=== PATIENT | female | born 1970 | race Caucasian/White ===

== ENCOUNTER → 2016-11-24 | Outpatient (CLI) | payer MEDICARE, BC ==
[2016-11-24 10:47] LABS: Basophils % (A) 1 %; CHCM 33.5; Eosinophils # (A) 0.1 k/uL (0-0.7); Eosinophils % (A) 1 %; HCT 50.2 % (34.0-46.0); HDW 2.73; HGB 16.1 gm/dL (11.4-16.0); Luc # (Auto) 0.19; Luc % (Auto) 2; Lymphocytes # (A) 1.5 k/uL (1.0-4.8); Lymphocytes % (A) 19 %; MCH 29.9 pg (25.0-35.0); MCHC 32.2 g/dL (31.0-37.0); MCV 92.9 fL (80.0-100.0); Mean Platelet Volume 7.3; Monocytes # (A) 0.4 k/uL (0-1.0); Monocytes % (A) 6 %; Neutrophils # (A) 5.5 k/uL (1.3-7.7); Neutrophils % (A) 71 %; RDW 13.2 % (11.5-15.5); WBC 7.7 k/uL (3.8-10.6); WBC (Perox) 7.77
[2016-11-24 10:53] LABS: ALT 34 U/L (9-52); AST 20 U/L (14-36); Alkaline Phosphatase 54 U/L (38-126); Anion Gap 12 mmol/L; Blood Urea Nitrogen 16 mg/dL (7-17); Calcium 9.6 mg/dL (8.4-10.2); Carbon Dioxide 25 mmol/L (22-30); Chloride 106 mmol/L (98-107); Cholesterol 173 mg/dL (<200); Glucose 85 mg/dL (74-99); HDL Cholesterol 46 mg/dL (40-60); Non-African American GFR(MDRD) >60 (>60 ml/min/1.73 sqM); Potassium 4.2 mmol/L (3.5-5.1); Sodium 143 mmol/L (137-145); Total Bilirubin 0.8 mg/dL (0.2-1.3); Total Protein 7.2 g/dL (6.3-8.2); Triglycerides 186 mg/dL (<150)
[2016-11-24 11:14] LABS: Hemoglobin A1C 5.1 % (4.2-6.1)
--- NOTE | 2016-11-25 13:53 | MM ---
Reason for exam: screening (asymptomatic). Last mammogram was performed 1 year and 6 months ago. History: Patient is nulliparous. Taking progesterone for 4 years. Physical Findings: A clinical breast exam by your physician is recommended on an annual basis and results should be correlated with mammographic findings. MG 3D Screening Mammo W/Cad Bilateral CC and MLO view(s) were taken. Prior study comparison: May 14, 2015, bilateral MG screening mammo w CAD. The breast tissue is heterogeneously dense. This may lower the sensitivity of mammography. No significant changes when compared with prior studies. ASSESSMENT: Benign, BI-RAD 2 RECOMMENDATION: Routine screening mammogram of both breasts in 1 year.
== END | disposition home or self-care (01) ==
LOC: RADMAMWWP 09:55
PROVIDERS: ATTEND Family Medicine
DX: Z12.31 Encounter for screening mammogram for malignant neoplasm of breast (principal)
CPT/HCPCS: 80061; 80053; 83036; 84443; 85025; 82306; 77063; 36415; G0202

== ENCOUNTER → 2018-03-11 | Outpatient (CLI) | payer MEDICARE, BC ==
--- NOTE | 2018-03-12 09:17 | MM ---
Reason for exam: screening (asymptomatic). Last mammogram was performed 1 year and 3 months ago. History: Patient is nulliparous. Taking progesterone for 4 years. Physical Findings: A clinical breast exam by your physician is recommended on an annual basis and results should be correlated with mammographic findings. MG 3D Screening Mammo W/Cad Bilateral CC, MLO, and XCCL view(s) were taken. Prior study comparison: November 24, 2016, bilateral MG 3d screening mammo w/cad. May 14, 2015, bilateral MG screening mammo w CAD. The breast tissue is heterogeneously dense. This may lower the sensitivity of mammography. There is a stable right upper inner quadrant mass back to 2013. No suspicious abnormality. No significant changes when compared with prior studies. ASSESSMENT: Benign, BI-RAD 2 RECOMMENDATION: Routine screening mammogram of both breasts in 1 year.
== END | disposition home or self-care (01) ==
LOC: RADMAMWWP 13:13
PROVIDERS: ATTEND Family Medicine
DX: Z12.31 Encounter for screening mammogram for malignant neoplasm of breast (principal)
CPT/HCPCS: 77063; 77067

== ENCOUNTER → 2019-04-06 | Outpatient (CLI) | payer MEDICARE, BC ==
--- NOTE | 2019-04-12 09:44 | MM ---
Reason for exam: screening (asymptomatic). Last mammogram was performed 1 year and 1 month ago. History: Patient is nulliparous. Taking progesterone for 4 years. Physical Findings: A clinical breast exam by your physician is recommended on an annual basis and results should be correlated with mammographic findings. MG 3D Screening Mammo W/Cad Bilateral CC and MLO view(s) were taken. Prior study comparison: March 11, 2018, bilateral MG 3d screening mammo w/cad. November 24, 2016, bilateral MG 3d screening mammo w/cad. The breast tissue is heterogeneously dense. This may lower the sensitivity of mammography. There is chronic nodularity in the right breast medially. No significant changes when compared with prior studies. ASSESSMENT: Benign, BI-RAD 2 RECOMMENDATION: Routine screening mammogram of both breasts in 1 year.
== END | disposition home or self-care (01) ==
LOC: RADMAMWWP 10:50
PROVIDERS: ATTEND Family Medicine
DX: Z12.31 Encounter for screening mammogram for malignant neoplasm of breast (principal)
CPT/HCPCS: 77063; 77067

== ENCOUNTER → 2019-10-17 | Outpatient (CLI) | payer MEDICARE, BC ==
--- NOTE | 2019-10-17 14:40 | US ---
EXAMINATION TYPE: US pelvic complete DATE OF EXAM: 10/17/2019 COMPARISON: NONE CLINICAL HISTORY: N92.1 Menorrhagia. TECHNIQUE: Transabdominal (TA). Transabdominal sonographic images of the pelvis were acquired. Date of LMP: 10/04/19 EXAM MEASUREMENTS: Uterus: 10.5 x 4.2 x 4.5 cm Endometrial Stripe: 1.4 cm Right Ovary: 2.7 x 1.6 x 2.2 cm Left Ovary: Surgically absent 1. Uterus: Anteverted wnl 2. Endometrium: wnl 3. Right Ovary: wnl 4. Left Ovary: Surgically absent 5. Bilateral Adnexa: small amount of ff in right adnexa 6. Posterior cul-de-sac: wnl IMPRESSION: 1. Endometrial thickness would be within normal limits for a premenopausal female but thickened for a postmenopausal female. Correlate with perimenopausal status. 2. Surgical absence of the left ovary. 3. Small amount of right adnexal free fluid, likely physiologic in nature.
[2019-10-17 15:29] LABS: T4, Free (Free Thyroxine) 1.01 ng/dL (0.78-2.19)
== END | disposition home or self-care (01) ==
LOC: RADUSWWP 13:27
PROVIDERS: ATTEND Obstetrics & Gynecology
DX: N95.9 Unspecified menopausal and perimenopausal disorder (principal); Z90.721 Acquired absence of ovaries, unilateral; Z13.29 Encounter for screening for other suspected endocrine disorder; N92.1 Excessive and frequent menstruation with irregular cycle
CPT/HCPCS: 76856; 84439; 84443

== ENCOUNTER 2020-05-28 06:21 | Day surgery (SDC) | payer MEDICARE, BC ==
[2020-05-24 11:34] VITALS: BMI 30.9
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
[~2020-05-28 06:21] MED LIST: Pre Op ABX Message 1 EACH MISC MISCELLANE ONE
[2020-05-28] MEDS ORDERED: LACTATED RINGERS 1,000 ML IV SCH (06:34)
[2020-05-28] MEDS ORDERED: ONDANSETRON 4 MG/2 ML VIAL IVP ONE (06:34)
[2020-05-28] MEDS ORDERED: HYDROmorphone 0.5 MG/0.5 ML SYRINGE IVP PRN (06:34)
[2020-05-28] MEDS ORDERED: DEXAMETHASONE SOD PHOSPHATE 10 MG/ML 1 ML VIAL IV ONE (06:34)
[2020-05-28] MEDS ORDERED: LIDOCAINE 1% (10MG/ML) FOR IV START INTRADERMA ONE (07:10)
[2020-05-28] MEDS ORDERED: fentaNYL (PF) 50 MCG/ML 2 ML AMP ONE (07:46)
[2020-05-28] MEDS ORDERED: MIDAZOLAM 2 MG/2 ML VIAL ONE (07:46)
[2020-05-28] MEDS ORDERED: LIDOCAINE 1% INJ 10MG/ML (20 ML MDV) ONE (07:46)
[2020-05-28] MEDS ORDERED: KETOROLAC 15 MG/ML 1 ML VIAL ONE (07:46)
[2020-05-28] MEDS ORDERED: PROPOFOL 10 MG/ML 20 ML VIAL IV ONE (07:46)
--- NOTE | 2020-05-28 08:34 | P.OP ---
Date of Procedure: 05/28/20 Preoperative Diagnosis: Menorrhagia with irregular cycle Postoperative Diagnosis: Same Procedure(s) Performed: Dilation and curettage with hysteroscopy and NovaSure endometrial ablation Anesthesia: ASHELY Surgeon: Luly Malik Estimated Blood Loss (ml): 25 Pathology: none sent Condition: stable Disposition: floor Indications for Procedure: This is a 49 y.o. female, 0, para 0, who presents for dilatation and curettage with hysteroscopy and Novasure endometrial ablation due to menorrhagia with irregular cycle. She complains of 2 cycles a month and intermenstrual spotting. Some menses are lasting up to 15 days. This has been going on for at least a year. She was previously taking cyclical Provera and switched to continuous with no change. She also complains of lots of cramping. She is not sexually active and understands this procedure is not a form of control. US showed uterus measuring 10.5 x 4.2 x 4.5 cm, endometrium 1.4 cm, R. ovary normal. L. ovary surgically removed. Operative Findings: Uterus is slightly enlarged, mid to anteverted position, tilted towards the right side slightly. Uterus is sounded to 10 cm. Cervix is sounded to 3 cm. Upon hysteroscopy several polyps were visualized. Both tubal ostia were v isualized. A moderate amount of endometrial curettings are obtained. Description of Procedure: The patient is taken to the operating room. She is placed in the dorsal litho arie position after general anesthesia was given. She is prepped and draped in the normal sterile fashion. Bladder is drained with a catheter and then removed. Pelvic exam is performed under anesthesia. Uterus is found to be anteverted with no adnexal masses. She is placed in slight Trendelenburg position. A right angle retractor is used to visualize the cervix. The anterior lip of the cervix is grasped with a single-tooth tenaculum. Cervix is sounded to 3 cm. Uterus is sounded to 10 cm. Cervix is gently dilated with Dunn dilators until a hysteroscope could be passed. Hysteroscopy is performed using normal saline. The above noted findings are noted. Next a polyp forceps is introduced. A moderate amount tissue was obtained. Next medium-sized size sharp curette was placed. A moderate amount of endometrial curettings were obtained. Next NovaSure array was inserted into the endometrial cavity. Length was set at 6.5 cm and width was determined to be 3.3 cm. Next cavity assessment was completed and passed on the first try. Next, attempt was made to fire the NovaSure array. I continually got a vacuum error despite repositioning. Next a new array was tried. Cavity assessment was again completed on the first try. Next NovaSure array was fired at 118 W for 68 seconds. Next the array was removed, inspected and then discarded. Next the hysteroscope was reinserted. Uniform charring was noted other than right at the fundus. Pictures were taken. Hysteroscope was removed. Single-tooth tenaculum was removed from the anterior lip of the cervix. Minimal bleeding was noted. All other instruments removed from the vagina. Sponge counts were correct. Patient is taken to recovery room in stable condition.
[2020-05-28 08:41] VITALS: TEMP 99
[2020-05-28 08:46] VITALS: RESP 16
[2020-05-28 09:53] VITALS: BP 129/83; PULSE 84
== END 2020-05-28 10:14 | disposition home or self-care (01) ==
LOC: OR 06:21
PROVIDERS: ATTEND Obstetrics & Gynecology
DX: N92.1 Excessive and frequent menstruation with irregular cycle (principal); N84.0 Polyp of corpus uteri; G91.9 Hydrocephalus, unspecified; K21.9 Gastro-esophageal reflux disease without esophagitis; Z88.1 Allergy status to other antibiotic agents; Z90.721 Acquired absence of ovaries, unilateral; Z79.899 Other long term (current) drug therapy; Z86.69 Personal history of other diseases of the nervous system and sense organs; Z80.8 Family history of malignant neoplasm of other organs or systems; Z98.890 Other specified postprocedural states
CPT/HCPCS: 81025; 88305; 58563; J2250; J1100; J2405; J2001; J3010; J1885; J2704

== ENCOUNTER → 2020-10-15 | Outpatient (CLI) | payer MEDICARE, BC ==
[2020-10-15 11:35] LABS: African American GFR (CKD) >90 (>60 ml/min/1.73 sqM); Anion Gap 10 mmol/L; Blood Urea Nitrogen 23 mg/dL (7-17); Carbon Dioxide 24 mmol/L (22-30); Chloride 106 mmol/L (98-107); Glucose 97 mg/dL (74-99); Non-African American GFR(CKD) >90 (>60 ml/min/1.73 sqM); Potassium 4.3 mmol/L (3.5-5.1); Sodium 140 mmol/L (137-145)
[2020-10-15 12:04] LABS: Basophils # (A) 0.1 k/uL (0-0.2); Basophils % (A) 1 %; Eosinophils # (A) 0.1 k/uL (0-0.7); Eosinophils % (A) 1 %; HCT 47.7 % (34.0-46.0); HGB 16.3 gm/dL (11.4-16.0); Lymphocytes # (A) 1.9 k/uL (1.0-4.8); Lymphocytes % (A) 20 %; MCH 31.1 pg (25.0-35.0); MCHC 34.2 g/dL (31.0-37.0); Mean Platelet Volume 7.6; Monocytes # (A) 0.7 k/uL (0-1.0); Monocytes % (A) 7 %; Neutrophils # (A) 6.6 k/uL (1.3-7.7); Neutrophils % (A) 69 %; Platelet Count 277 k/uL (150-450); RBC 5.24 m/uL (3.80-5.40); RDW 12.4 % (11.5-15.5); WBC 9.5 k/uL (3.8-10.6)
== END | disposition home or self-care (01) ==
LOC: LABPAT 09:57
PROVIDERS: ATTEND Obstetrics & Gynecology
DX: Z01.818 Encounter for other preprocedural examination (principal)
CPT/HCPCS: 36415; 80048; 85025; 86850; 86900; 86901

== ENCOUNTER 2020-10-22 05:52 | Inpatient (IN) | payer MEDICARE, BC ==
[2020-10-15 14:32] VITALS: BMI 31.3
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
[~2020-10-22 05:52] MED LIST changes: +MIDAZOLAM 2 MG/2 ML VIAL IV PRN; -Pre Op ABX Message 1 EACH MISC MISCELLANE ONE; +SCOPOLAMINE 1.5MG/72HR PATCH TRANSDERM ONE
[2020-10-22] MEDS: LACTATED RINGERS 1,000 ML IV SCH ×4 (06:39→15:02)
[2020-10-22] MEDS ORDERED: LIDOCAINE 1% (10MG/ML) FOR IV START INTRADERMA ONE (06:39)
[2020-10-22] MEDS ORDERED: HYDROmorphone 0.5 MG/0.5 ML SYRINGE IVP PRN (07:00)
[2020-10-22] MEDS: ONDANSETRON 4 MG/2 ML VIAL IVP ONE ×2 (07:01→12:04)
[2020-10-22] MEDS: DEXAMETHASONE SOD PHOSPHATE 4 MG/ML 1 ML VIAL IV ONE ×2 (07:01→12:04)
[2020-10-22] MEDS ORDERED: fentaNYL (PF) 50 MCG/ML 2 ML AMP IV ONE (07:03)
[2020-10-22] MEDS ORDERED: PROPOFOL 10 MG/ML 20 ML VIAL IV ONE (07:23)
[2020-10-22] MEDS ORDERED: NEOSTIGMINE 1 MG/ML 10 ML VIAL ONE (07:23)
[2020-10-22] MEDS ORDERED: LIDOCAINE 1% INJ 10MG/ML (20 ML MDV) ONE (07:23)
[2020-10-22] MEDS ORDERED: ROCURONIUM 10 MG/ML (5 ML VIAL) IV ONE (07:23)
[2020-10-22] MEDS ORDERED: ROPIVACAINE 5 MG/ML 30 ML VIAL ONE (07:23)
[2020-10-22] MEDS ORDERED: ePHEDrine SULFATE/0.9% NACL/PF 50 MG/5 ML SYRINGE IV ONE (07:23)
[2020-10-22] MEDS ORDERED: GLYCOPYRROLATE 0.2 MG/ML 2 ML VIAL ONE (07:23)
[2020-10-22] MEDS ORDERED: SUCCINYLCHOLINE CHLORIDE 100 MG/5 ML SYR IV ONE (07:23)
[2020-10-22] MEDS ORDERED: DEXAMETHASONE SOD PHOSPHATE 4 MG/ML 1 ML VIAL ONE (07:23)
[2020-10-22] MEDS ORDERED: fentaNYL (PF) 50 MCG/ML 2 ML AMP ONE (07:23)
[2020-10-22] MEDS ORDERED: LACTATED RINGERS 1,000 ML IV ONE (09:00)
--- NOTE | 2020-10-22 09:11 | P.OP ---
Date of Procedure: 10/22/20 Preoperative Diagnosis: Endometrial hyperplasia with atypia Postoperative Diagnosis: Severe intra-abdominal adhesions Procedure(s) Performed: Exploratory laparotomy Lysis of omental and abdominal bowel adhesions Repair of bowel and bladder serosa Anesthesia: venkata LUND (Erector spinae block) Surgeon: Luly Malik Schedule Analyst #1: Porsha Bush Schedule Analyst #2: Carlos Manuel Castillo Estimated Blood Loss (ml): 50 Urine output (ml): 60 (Blood-tinged) Pathology: none sent Condition: stable Disposition: floor Indications for Procedure: This is a 50 y.o. female, 0, who presents for total abdominal hysterect matteo with right salpingooophorectomy due to endometrial hyperplasia with atypia diagnosed on dilatation and curettage with hysteroscopy and Novasure endometrial ablation in May,. Prior to her ablation, she was having frequent irregular menses that did not improve with progesterone. Since pathology came back with endometrial hyperplasia with atypia, the decision was made by her guardian (mother) to proceed with the above noted procedure. She is aware that this will cause her to go into menopause. Operative Findings: Severe omental and bowel adhesions are noted. Uterus was unable to be completely visualized. There was some denudation of the serosa of the colon and also the bladder. These were repaired by Dr. Castillo. Right ovary was unable to be visualized. The uterus did appear to be very small with adhesions both posteriorly and anteriorly. The uterus was unable to be completely visualized. Description of Procedure: The patient was taken to the operating room and she is placed in the dorsal supine position area she is prepped and draped in the normal sterile fashion including a vaginal prep and Mendez catheter insertion. A Pfannenstiel skin incision was made with a scalpel. A second knife was used to carry the incision down to the underlying layer of fascia. The fascia was nicked in the midline and then extended laterally bilaterally with Garcia scissors. The superior aspect of the fascial incision was then grasped with Birgit clamps and dissected off the underlying rectus muscle in the midline with Garcia scissors. The inferior aspect of the fascial incision was then also grasped with Birgit clamps, and dissected off the underlying rectus muscle in the midline with Garcia scissors. Multiple attempts were made to find the peritoneal layer. It was apparent that there were bowel adhesions throughout. At this point we were unable to find entry into the peritoneal cavity and we were concerned that we were already in due to omental adhesions, the decision was made to call a general surgeon in. Dr. Carlos Manuel Castillo did come into the surgery and his portion will be dictated separately. Numerous omental and bowel adhesions were taken down to attempt to see the uterus. There was some denudation of the colon that was repaired. During the surgery anesthesia notified me that her urine did have a blood tinge to it. We were able to finally find the uterus and bowel was adhesed to the posterior wall of the uterus. The right adnexa was unable to be visualized. The anterior the uterus was also unable to be visualized. There was what appeared to be a small denudation of the serosa of the anterior bladder. This was also repaired with stitches by Dr. Castillo. At this point the decision was made to abandon the hysterectomy due to severe scar tissue and lack of bowel prep. It was decided that we can potentially cause more harm to her and when risks and benefits were weighed, it was determined to stop the procedure at this point. After no active bleeding was noted, all sponge counts were correct. Fascia layer was then closed with 0 PDS suture with 2 sutures meeting in the midline and the knots buried on either side and the midline. Tissue was then closed with 2-0 Vicryl suture in a running fashion. The skin is then closed with medardo. All sponge and needle counts are correct. The patient is taken to recovery room in stable condition. Her mother who is her guardian will be apprised of the situation.
--- NOTE | 2020-10-22 09:34 | P.ANPRN ---
Procedure Note - Anesthesia - Nerve Block Performed Bilateral Erector Spinae Single Time Out Performed: Yes (702) Date of Procedure: 10/22/20 Procedure Start Time: :03 Procedure Stop Time: 07:08 Location of Patient: PreOp Indication: Acute Post-Operative Pain, Requested by Surgeon Specifically requested for management of pain by DrYash: Luly Malik Sedation Type: Sedate with meaningful contact maintained Preparation: Sterile Prep Position: Supine Catheter: None Needle Types: Pajunk Needle Gauge: 21 Ultrasound used to visualize needle placement: Yes Ultrasound used to observe medication spread: Yes Injectate: 0.5% Ropivacaine (see comment for volume) (15cc + 15cc NACL PF each side) Blood Aspirated: No Pain Paresthesia on Injection Noted: No Resistance on Injection: Normal Image Stored and Saved: Yes Events: Uneventful and Well Tolerated
[2020-10-22] MEDS ORDERED: ONDANSETRON 4 MG/2 ML VIAL IVP ONE (09:48)
[2020-10-22] MEDS ORDERED: KETOROLAC 15 MG/ML 1 ML VIAL IVP ONE (09:54)
[2020-10-22] MEDS ORDERED: HYDROcodone/APAP 7.5-325MG 1 EACH TAB PO PRN (10:45)
[2020-10-22] MEDS ORDERED: ONDANSETRON 4 MG/2 ML VIAL IVP PRN (10:45)
[2020-10-22] MEDS ORDERED: METOCLOPRAMIDE 5 MG/ML 2 ML VIAL IVP PRN (10:45)
[2020-10-22] MEDS ORDERED: SIMETHICONE 80 MG CHEWABLE PO PRN (10:45)
[2020-10-22] MEDS ORDERED: ZOLPIDEM 5 MG TAB PO PRN (10:45)
[2020-10-22] MEDS ORDERED: HYDROmorphone PCA 10 MG/50 ML BAG IV PRN (10:45)
[2020-10-22] MEDS ORDERED: NALOXONE 0.4 MG/ML 1 ML VIAL IV PRN (10:45)
[2020-10-22] MEDS ORDERED: diphenhydrAMINE 50 MG/ML 1 ML VIAL IVP PRN (10:45)
--- NOTE | 2020-10-22 11:02 | P.OP ---
Date of Procedure: 10/22/20 Procedure(s) Performed: PREOPERATIVE DIAGNOSIS: Abdominal adhesions POSTOPERATIVE DIAGNOSIS: Same PROCEDURE: Lysis of adhesions SURGEON: Jonathan EBL: Minimal ANESTHESIA: General COMPLICATIONS: None OPERATIVE PROCEDURE: Patient was taken to the OR for a elective hysterectomy by gynecology. A Pfannenstiel incision was chosen. I was asked to assist once the patient was found to have extensive abdominal adhesions. Upon inspection of the operative field the patient had a Pfannenstiel incision with the rectus in the midline. The patient's sigmoid colon was visualized traversing the middle aspect of the incision site. There was a 3 cm serosal tear running longitudinally and another less than 1 cm serosal tear superior to that. As we carefully dissected adhesions using a combination of blunt dissection and sharp dissection and electrocautery sparingly we're able to mobilize the sigmoid colon well enough that we could see that the patient had some heavier sutures that were adherent to the sigmoid colon in the region of the serosal tear. These appear to be there from the previous surgery. We were able to dissect anterior to the sigmoid colon and follow the sigmoid colon as it approached the rectum. In doing so we were able to palpate the patient's uterus and Dr. Malik was able to dissect a portion of the uterus but the patient still had dense adhesions. As we were inspecting the preperitoneal space anterior to the uterus we were able to see an area of the bladder wall superiorly and anteriorly that was thin. There was no defect present. This weakness of the bladder wall was repaired using a running 2-0 Vicryl suture. Gynecology decided at this point that they would abort the planned hysterectomy. They proceeded with formal closure. DISPOSITION: Stable
[2020-10-22] MEDS: SENNOSIDES-DOCUSATE SODIUM 1 EACH TAB PO SCH ×2 (12:09→23:04)
[2020-10-22] MEDS: BACLOFEN 10 MG TAB PO SCH ×3 (13:12→22:09)
[2020-10-22 13:22] VITALS: RESP 16
[2020-10-22] MEDS: KETOROLAC 15 MG/ML 1 ML VIAL IVP PRN ×2 (16:10→22:10)
[2020-10-23] MEDS: LACTATED RINGERS 1,000 ML IV SCH (00:28)
[2020-10-23] MEDS: KETOROLAC 15 MG/ML 1 ML VIAL IVP PRN ×2 (04:31→10:33)
[2020-10-23 05:53] LABS: Basophils % (A) 0 %; Eosinophils % (A) 0 %; Lymphocytes # (A) 1.5 k/uL (1.0-4.8); Lymphocytes % (A) 11 %; MCHC 33.2 g/dL (31.0-37.0); MCV 90.3 fL (80.0-100.0); Mean Platelet Volume 7.8; Monocytes # (A) 0.9 k/uL (0-1.0); Monocytes % (A) 7 %; Neutrophils # (A) 11.5 k/uL (1.3-7.7); Neutrophils % (A) 81 %; Platelet Count 234 k/uL (150-450); RBC 4.21 m/uL (3.80-5.40); RDW 13.3 % (11.5-15.5); WBC 14.2 k/uL (3.8-10.6)
[2020-10-23 06:09] LABS: HGB 12.6 gm/dL (11.4-16.0)
[2020-10-23] MEDS ORDERED: ACETAMINOPHEN TAB 325 MG TAB PO PRN (07:42)
[2020-10-23] MEDS: BACLOFEN 10 MG TAB PO SCH ×3 (08:43→21:59)
[2020-10-23] MEDS: SENNOSIDES-DOCUSATE SODIUM 1 EACH TAB PO SCH (08:43)
--- NOTE | 2020-10-23 09:14 | P.PN ---
Subjective Progress Note Date: 10/23/20 Principal diagnosis: Status post exploratory laparotomy with lysis of adhesions and repair of bowel and bladder serosa postoperative day #1 Patient is doing better today. She is passing flatus. She is hungry. Her urine is now very clear and copious amounts. Pain is been fairly well- controlled. She is only used her YEAST PUSHER pump once in the last 4 hours. Objective - Vital Signs Vital signs: Vital Signs Temp 99 F 10/23/20 08:00 Pulse 99 10/23/20 08:00 Resp 16 10/23/20 08:00 BP 132/84 10/23/20 08:00 Pulse Ox 97 10/23/20 08:00 Intake & Output 10/22/20 10/23/20 10/23/20 18:59 06:59 18:59 Intake Total 1450 Output Total 160 400 Balance 1290 -400 Weight 68.7 kg Intake: IV 1450 Output: Urine 110 400 Uretheral (Mendez) 200 Estimated Blood Loss 50 Other: Voiding Method Indwelling Catheter Indwelling Catheter - Constitutional General appearance: Present: no acute distress - Gastrointestinal Gastrointestinal Comment(s): Incision is clean dry and intact with medardo in place General gastrointestinal: Present: normal bowel sounds - Labs CBC & Chem 7: 10/23/20 05:04 Labs: Abnormal Lab Results - Last 24 Hours (Table) 10/23/20 Range/Units 05:04 WBC 14.2 H (3.8-10.6) k/uL Neutrophils # 11.5 H (1.3-7.7) k/uL Assessment and Plan Assessment: Status post exploratory laparotomy with lysis of adhesions and repair of bowel and bladder serosa postoperative day #1, unable to complete hysterectomy (1) Endometrial hyperplasia with atypia Current Visit: No Status: Acute Code(s): N85.02 - ENDOMETRIAL INTRAEPITHELIAL NEOPLASIA [EIN] SNOMED Code(s): 142737045 Plan: We'll switch to oral pain medications today. Will discontinue Mendez catheter and advance diet. Will resume Provera daily since we were unable to remove the uterus. She will follow-up with [facility] after discharge. We will encourage ambulation. Will consult physical therapy for a knee scooter like she uses at home so that she can start ambulate more.
[2020-10-23] MEDS ORDERED: medroxyPROGESTERone 10 MG TABLET PO SCH ×2 (09:15→21:00)
[2020-10-23] MEDS: HYDROcodone/APAP 5-325MG 1 EACH TAB PO PRN ×2 (13:04→19:30)
--- NOTE | 2020-10-23 15:26 | P.PN ---
Subjective Progress Note Date: 10/23/20 Principal diagnosis: Abdominal adhesions Patient doing well today. Mild discomfort when moving at the incision site. Passing gas. Mendez catheter was removed. She has voided twice since then. No blood. Labs noted. Objective - Vital Signs Vital signs: Vital Signs Temp 98.5 F 10/23/20 12:00 Pulse 107 H 10/23/20 12:00 Resp 16 10/23/20 12:00 BP 135/88 10/23/20 12:00 Pulse Ox 95 10/23/20 12:00 Intake & Output 10/22/20 10/23/20 10/23/20 18:59 06:59 18:59 Intake Total 1450 Output Total 262 031 5421 Balance 1290 -400 -1600 Weight 68.7 kg Intake: IV 1450 Output: Urine 350 863 7222 Uretheral (Mendez) 200 1100 Estimated Blood Loss 50 Other: Voiding Method Indwelling Catheter Indwelling Catheter - Exam Abdomen: Soft, nondistended, incision clean and dry, mild appropriate tenderness - Labs CBC & Chem 7: 10/23/20 05:04 Labs: Abnormal Lab Results - Last 24 Hours (Table) 10/23/20 Range/Units 05:04 WBC 14.2 H (3.8-10.6) k/uL Neutrophils # 11.5 H (1.3-7.7) k/uL Assessment and Plan (1) Abdominal adhesions Narrative/Plan: Patient seems to be doing well today. Mild tachycardia. Pain is well- controlled. Repeat labs tomorrow. Agree with regular diet. Will follow. Current Visit: Yes Status: Acute Code(s): K66.0 - PERITONEAL ADHESIONS (POSTPROCEDURAL) (POSTINFECTION) SNOMED Code(s): 363753701
[2020-10-23] MEDS: IBUPROFEN 600 MG TAB PO PRN ×2 (15:39→21:59)
[2020-10-24] MEDS: SENNOSIDES-DOCUSATE SODIUM 1 EACH TAB PO SCH ×2 (00:03→07:23)
[2020-10-24 06:19] LABS: Basophils % (A) 0 %; Eosinophils # (A) 0.2 k/uL (0-0.7); Eosinophils % (A) 2 %; HCT 37.3 % (34.0-46.0); HGB 12.2 gm/dL (11.4-16.0); Lymphocytes # (A) 1.8 k/uL (1.0-4.8); Lymphocytes % (A) 20 %; MCH 29.9 pg (25.0-35.0); MCHC 32.8 g/dL (31.0-37.0); Mean Platelet Volume 7.8; Monocytes # (A) 0.5 k/uL (0-1.0); Monocytes % (A) 5 %; Neutrophils # (A) 6.3 k/uL (1.3-7.7); Neutrophils % (A) 71 %; Platelet Count 211 k/uL (150-450); RDW 13.1 % (11.5-15.5); WBC 8.9 k/uL (3.8-10.6)
--- NOTE | 2020-10-24 07:21 | P.DS ---
Providers Date of admission: 10/22/20 05:52 Expected date of discharge: 10/24/20 Attending physician: Luly Malik Consults: 10/22/20 12:25 Consult Physician Routine Consulting Provider: Carlos Manuel Castillo Consult Reason/Comments: Intraoperative consult for adhesions Do you want consulting provider notified?: Already Contacted Primary care physician: Angelo Ramirez - Discharge Diagnosis(es) (1) Endometrial hyperplasia with atypia Current Visit: No Status: Acute Hospital Course: This is a 50-year-old female 0 who presented for total abdominal hysterectomy with right salpingo-oophorectomy due to endometrial hyperplasia with atypia. She underwent an exploratory laparotomy with lysis of adhesions and repair of bowel serosa and bladder serosa on 10/22/2020. Hysterectomy was not completed due to extensive adhesions and scar tissue and inability to visualize. Postoperatively she has done well. She is passing flatus but no bowel movement yet. She is urinating without difficulty. Her urine has cleared since the surgery. Pain is been fairly well-controlled with ibuprofen and occa sional Montgomery. Vital signs are stable. Abdomen is soft with positive bowel sounds 4. Incision is clean dry and intact with khadijah in place. Extremities show negative Homans. Impression is status post exploratory laparotomy with lysis of adhesions and repair of bowel and bladder serosa. Plan is to discharge home today. Khadijah will be removed and Steri-Strips placed prior to discharge. She will be given a prescription for ibuprofen and Montgomery. Her mother who is her guardian was counseled regarding opioid use and has signed the consent form. She is advised to follow up in the office in 1 week for postoperative check. She is advised to call the office if she has any further questions or concerns prior to her appointment time. Procedures: Exploratory laparotomy with lysis of adhesions and repair of bowel serosa and bladder serosa on 10/22/2020 Patient Condition at Discharge: Stable Plan - Discharge Summary Discharge Rx Participant: Yes New Discharge Prescriptions: New Ibuprofen [Motrin] 600 mg PO Q6HR PRN #60 tab PRN Reason: Mild Discomfort HYDROcodone/APAP 5-325MG [Montgomery 5-325] 1 each PO Q6HR PRN #10 tab PRN Reason: Pain Continue Cholecalciferol [Vitamin D3 (25 Mcg = 1000 Iu)] 5,000 unit PO DAILY Multivitamins, Thera [Multivitamin (formulary)] 1 tab PO DAILY Fiber Cap 1 tab PO DAILY medroxyPROGESTERone [Provera] 10 mg PO QAM Ascorbic Acid [Vitamin C] 500 mg PO DAILY Baclofen [Lioresal] 10 mg PO TID Discharge Medication List Cholecalciferol [Vitamin D3 (25 Mcg = 1000 Iu)] 5,000 unit PO DAILY 05/24/20 [History] Fiber Cap 1 tab PO DAILY 05/24/20 [History] Multivitamins, Thera [Multivitamin (formulary)] 1 tab PO DAILY 05/24/20 [History] Ascorbic Acid [Vitamin C] 500 mg PO DAILY 10/15/20 [History] Baclofen [Lioresal] 10 mg PO TID 10/15/20 [History] medroxyPROGESTERone [Provera] 10 mg PO QAM 10/15/20 [History] HYDROcodone/APAP 5-325MG [Montgomery 5-325] 1 each PO Q6HR PRN #10 tab 10/24/20 [Rx] Ibuprofen [Motrin] 600 mg PO Q6HR PRN #60 tab 10/24/20 [Rx] Follow up Appointment(s)/Referral(s): Luly Malik DO [Doctor of Osteopathic Medicine] - 1 Week Activity/Diet/Wound Care/Special Instructions: Activity as tolerated. Diet as tolerated. May shower, but no tub baths. No strenuous lifting. Discharge Disposition: HOME SELF-CARE
[2020-10-24] MEDS: HYDROcodone/APAP 5-325MG 1 EACH TAB PO PRN (07:23)
[2020-10-24 08:23] VITALS: BP 138/89; PULSE 96; TEMP 99.1
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
== END 2020-10-24 10:30 | disposition home or self-care (01) | DRG 750 ==
LOC: 2ORMAIN 05:52 → EDSTATUS 07:30 → 4FBP 09:20
PROVIDERS: ADMIT Obstetrics & Gynecology; ATTEND Obstetrics & Gynecology
PROC: 0DNN0ZZ Release Sigmoid Colon, Open Approach (ICD-10-PCS; principal; 2020-10-22 07:30)
PROC: 0DNU0ZZ Release Omentum, Open Approach (ICD-10-PCS; principal; 2020-10-22 07:30)
DX: N85.02 Endometrial intraepithelial neoplasia [EIN] (principal); N92.0 Excessive and frequent menstruation with regular cycle; K66.0 Peritoneal adhesions (postprocedural) (postinfection); R00.0 Tachycardia, unspecified; Z80.8 Family history of malignant neoplasm of other organs or systems; Z88.1 Allergy status to other antibiotic agents; Z79.899 Other long term (current) drug therapy; Z53.09 Procedure and treatment not carried out because of other contraindication
CPT/HCPCS: 76942; 84703; 85025; 86850; 86900; 86901

== ENCOUNTER → 2021-01-03 | Outpatient (CLI) | payer MEDICARE, BC ==
--- NOTE | 2021-01-04 09:10 | MM ---
Reason for exam: screening (asymptomatic). Last mammogram was performed 1 year and 9 months ago. History: Patient is nulliparous. Taking progesterone for 4 years. Physical Findings: A clinical breast exam by your physician is recommended on an annual basis and results should be correlated with mammographic findings. MG 3D Screening Mammo W/Cad Bilateral CC and MLO view(s) were taken. Prior study comparison: April 06, 2019, bilateral MG 3d screening mammo w/cad. March 11, 2018, bilateral MG 3d screening mammo w/cad. The breast tissue is heterogeneously dense. This may lower the sensitivity of mammography. There is no discrete abnormality. No significant changes when compared with prior studies. ASSESSMENT: Negative, BI-RAD 1 RECOMMENDATION: Routine screening mammogram of both breasts in 1 year.
== END | disposition home or self-care (01) ==
LOC: RADMAMWWP 10:47
PROVIDERS: ATTEND Family Medicine
DX: Z12.31 Encounter for screening mammogram for malignant neoplasm of breast (principal)
CPT/HCPCS: 77063; 77067

== ENCOUNTER 2021-05-21 06:25 | Day surgery (SDC) | payer MEDICARE, BC ==
[2021-05-17 15:03] VITALS: BMI 32.3
[~2021-05-21 06:25] MED LIST changes: +LACTATED RINGERS 1,000 ML IV SCH; +LIDOCAINE 1% (10MG/ML) FOR IV START INTRADERMA PRN; -MIDAZOLAM 2 MG/2 ML VIAL IV PRN; +Pre Op ABX Message 1 EACH MISC MISCELLANE ONE; -SCOPOLAMINE 1.5MG/72HR PATCH TRANSDERM ONE
[2021-05-21 06:55] VITALS: TEMP 98.2
[2021-05-21] MEDS ORDERED: ONDANSETRON 4 MG/2 ML VIAL ONE (07:10)
[2021-05-21] MEDS ORDERED: DEXAMETHASONE SOD PHOSPHATE 4 MG/ML 1 ML VIAL IVP ONE (07:15)
[2021-05-21] MEDS ORDERED: LIDOCAINE 1% (10MG/ML) FOR IV START INTRADERMA ONE (07:15)
[2021-05-21] MEDS ORDERED: ONDANSETRON 4 MG/2 ML VIAL IVP ONE (07:15)
[2021-05-21] MEDS ORDERED: fentaNYL (PF) 50 MCG/ML 2 ML AMP ONE (07:30)
[2021-05-21] MEDS ORDERED: PROPOFOL 10 MG/ML 20 ML VIAL IV ONE (07:30)
[2021-05-21] MEDS ORDERED: LIDOCAINE 1% INJ 10MG/ML (20 ML MDV) ONE (07:30)
[2021-05-21] MEDS ORDERED: KETOROLAC 15 MG/ML 1 ML VIAL ONE (07:30)
[2021-05-21] MEDS ORDERED: MIDAZOLAM 2 MG/2 ML VIAL ONE (07:30)
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
--- NOTE | 2021-05-21 08:02 | P.OP ---
Date of Procedure: 05/21/21 Preoperative Diagnosis: History of Endometrial hyperplasia with atypia Postoperative Diagnosis: History of endometrial hyperplasia with atypia Procedure(s) Performed: Dilation and curettage with hysteroscopy Anesthesia: ASHELY Surgeon: Luly Malik Estimated Blood Loss (ml): 20 Pathology: other (Endometrial curettage) Condition: stable Disposition: same day Indications for Procedure: This is a 50-year-old female 0 who underwent a dilation and curettage with hysteroscopy and NovaSure endometrial ablation in May 2020. Pathology did show endometrial hyperplasia with atypia. She underwent an attempt to perform a abdominal hysterectomy however due to extensive adhesions, the procedure was abandoned. She was seen by Dr. Yousif from [facility] who recommended an endometrial biopsy the in approximately 6 months which is now. The patient denies any bleeding. She denies any pain or cramping. Operative Findings: Uterus is anteverted, sounded to centimeters. Upon hysteroscopy, a very atrophic parous was noted. Both tubal ostia are visualized. Very scant endometrial curettings are obtained. Cervical os was stenotic. Description of Procedure: The patient was taken to the operating room and she is placed in the dorsal lithotomy position. She is prepped and draped in the normal sterile fashion. Bladder is drained with a catheter and then removed. Next a small right angle retractor was used to retract the posterior vaginal wall and a Gabonese forceps was used to retract the anterior wall. The anterior lip of the cervix was grasped with a single-tooth tenaculum. The cervix was gently opened with a small Dunn dilator. The cervix is gently opened further with Dunn dilators until a hysteroscope could be passed. Uterus is sounded to 6 cm. Hysteroscopy is then performed using normal saline. The above noted findings are made and pictures are taken. The hysteroscope was withdrawn and then a curet was used to perform uterine curettage. Uterine curettage was carried out until a gritty te xture was noted. Very scant endometrial tissue was obtained. The specimen was removed the field. Single-tooth tenaculum was removed from the anterior lip of the cervix. Pressure was applied to the site with a sponge. Punch was removed no active bleeding was noted. All sponge counts are correct. All instrument counts are correct. The patient is then taken to recovery room in stable condition.
[2021-05-21 08:56] VITALS: RESP 18
[2021-05-21 09:13] VITALS: BP 122/78; PULSE 78
== END 2021-05-21 09:35 | disposition home or self-care (01) ==
LOC: OR 06:25
PROVIDERS: ATTEND Obstetrics & Gynecology
DX: N85.02 Endometrial intraepithelial neoplasia [EIN] (principal); G40.909 Epilepsy, unspecified, not intractable, without status epilepticus; Z98.2 Presence of cerebrospinal fluid drainage device; Z98.890 Other specified postprocedural states; Z90.721 Acquired absence of ovaries, unilateral; Z80.8 Family history of malignant neoplasm of other organs or systems; Z79.899 Other long term (current) drug therapy; Z88.1 Allergy status to other antibiotic agents
CPT/HCPCS: 88305; 84703; 58563; J2250; J1100; J2405; J2001; J3010; J1885; J2704

== ENCOUNTER 2021-11-21 06:40 | Day surgery (SDC) | payer MEDICARE, BC ==
[2021-11-19 16:57] VITALS: BMI 29.9
[~2021-11-21 06:40] MED LIST changes: -Pre Op ABX Message 1 EACH MISC MISCELLANE ONE
[2021-11-21] MEDS ORDERED: LIDOCAINE 1% (10MG/ML) FOR IV START INTRADERMA ONE (07:14)
[2021-11-21] MEDS ORDERED: PROPOFOL 10 MG/ML 20 ML VIAL IV ONE (07:44)
[2021-11-21] MEDS ORDERED: LIDOCAINE 1% INJ 10MG/ML (20 ML MDV) ONE (07:44)
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
[2021-11-21 08:14] VITALS: RESP 16
--- NOTE | 2021-11-21 08:15 | P.PCN ---
Date of Procedure: 11/21/21 Description of Procedure: PREOPERATIVE DIAGNOSIS: Colonoscopy screening POSTOPERATIVE DIAGNOSIS: Colonoscopy screening Tubular adenoma hepatic flexure Tubular adenoma transverse colon Sigmoid diverticulosis OPERATION: Colonoscopy to the ileocecal valve and appendiceal orifice, cecum Colonoscopy with hot snare polypectomy SURGEON: Jazmyn Cottrell MD. ANESTHESIA: MAC. INDICATIONS: The patient is an 51-year-old female who presents for colonoscopy screening. Benefits and risks were described and informed consent was obtained. DESCRIPTION OF PROCEDURE: The patient had undergone Sutab prep. The patient had been brought into the operating room and laid in the left lateral decubitus position. After adequate intravenous sedation, the rectum was examined with 2% lidocaine jelly. No external hemorrhoids were encountered. The rectal tone was within normal limits. No lesions were palpated in the rectal vault. An Olympus colonoscope was advanced until the cecum, ileocecal valve and appendiceal orifice were clearly viewed. The prep was excellent. Sigmoid diverticulosis was encountered. C olonic polyps were found and removed. No evidence of focal colitis was found. Retroflexion of the scope demonstrated grade 1 internal hemorrhoids without active bleeding or inflammation. The colon was desufflated. The patient had tolerated the procedure well. Withdrawal time was over 6 minutes. FINDINGS: Aronchick preparation quality scale 1 (1-5) Internal hemorrhoids, grade 1 No external hemorrhoids, grade 1. No arteriovenous malformations. Sigmoid diverticulosis Features of suture repair along sigmoid colon Removal of 2 polyps: - Snare polypectomy proximal transverse colon, 5 mm tubulovillous adenoma polyp. - Snare polypectomy at hepatic flexure, 8 mm flat villous adenoma polyp. No focal colitis. RECOMMENDATIONS: Given severity of tubular adenomas, recommend repeat colonoscopy 3 years, 2024 Plan - Discharge Summary Discharge Rx Participant: No New Discharge Prescriptions: Continue Cholecalciferol [Vitamin D3 (25 Mcg = 1000 Iu)] 5,000 unit PO DAILY Multivitamins, Thera [Multivitamin (formulary)] 1 tab PO DAILY Fiber Cap 1 tab PO DAILY medroxyPROGESTERone [Provera] 10 mg PO QAM Ascorbic Acid [Vitamin C] 500 mg PO DAILY Baclofen [Lioresal] 10 mg PO TID PRN PRN Reason: Muscle Pain Discharge Medication List Cholecalciferol [Vitamin D3 (25 Mcg = 1000 Iu)] 5,000 unit PO DAILY 05/24/20 [History] Fiber Cap 1 tab PO DAILY 10/15/20 [History] Multivitamins, Thera [Multivitamin (formulary)] 1 tab PO DAILY 05/24/20 [History] Ascorbic Acid [Vitamin C] 500 mg PO DAILY 10/15/20 [History] Baclofen [Lioresal] 10 mg PO TID PRN 10/15/20 [History] medroxyPROGESTERone [Provera] 10 mg PO QAM 10/15/20 [History] Follow up Appointment(s)/Referral(s): Jazmyn Cottrell MD [STAFF PHYSICIAN] - As Needed Patient Instructions/Handouts: Diverticulosis (DC), Weight Management (GEN), Colorectal Polyps (GEN), Diverticulosis Diet (GEN) Activity/Diet/Wound Care/Special Instructions: Repeat colonoscopy in 3 years, 2024 Discharge Disposition: HOME SELF-CARE
[2021-11-21 08:58] VITALS: BP 133/68; PULSE 72
== END 2021-11-21 09:16 | disposition home or self-care (01) ==
LOC: ORWHC2ENDO 06:40
PROVIDERS: ATTEND Surgery Plastic and Reconstructive Surgery
DX: Z12.11 Encounter for screening for malignant neoplasm of colon (principal); K57.30 Diverticulosis of large intestine without perforation or abscess without bleeding; D12.3 Benign neoplasm of transverse colon; K64.8 Other hemorrhoids; G40.909 Epilepsy, unspecified, not intractable, without status epilepticus; Z79.899 Other long term (current) drug therapy; Z88.8 Allergy status to other drugs, medicaments and biological substances; Z83.71 Family history of colonic polyps; Z80.41 Family history of malignant neoplasm of ovary
CPT/HCPCS: 45385; 88305; 84703; J2001; J2704

== ENCOUNTER → 2021-12-16 | Outpatient (CLI) | payer MEDICARE, BC ==
--- NOTE | 2021-12-16 12:06 | US ---
EXAMINATION TYPE: US pelvic complete DATE OF EXAM: 12/16/2021 COMPARISON: Pelvic ultrasound October 17, 2019 CLINICAL HISTORY: N92.0 MENORRHAGIA, N85.02 ENDOMETRIAL HYPERPLASIA. ablation 05/30. left oophorectom y TECHNIQUE: Transabdominal (TA) Date of LMP: unknown EXAM MEASUREMENTS: Uterus: 7.1 x 3.5 x 3.9 cm Endometrial Stripe: 0.3 cm Right Ovary: 2.5 x 1.9 x 2.2 cm Left Ovary: Surgically absent 1. Uterus: Anteverted wnl 2. Endometrium: appears wnl 3. Right Ovary: dominant follicle = 1.4 x 1.7 x 1.4cm 4. Left Ovary: Surgically absent 5. Bilateral Adnexa: cystic area left adnexa = 1.9 x 1.1 x 1.8cm 6. Posterior cul-de-sac: wnl Heterogeneous anteverted uterus. No suspicious focal masses. No abnormal thickening of the endometria l stripe after ablation. No free fluid. Right ovary seen and normal in size. Left ovary is surgically absent. There is 1.9 x 1.1 x 1.8 cm ova l well-defined anechoic to hypoechoic lesion with increased through transmission favoring simple para ovarian cyst. IMPRESSION: Cause of patient's symptoms not identified.
== END | disposition home or self-care (01) ==
LOC: RADUSWWP 10:21
PROVIDERS: ATTEND Obstetrics & Gynecology
DX: N92.0 Excessive and frequent menstruation with regular cycle (principal); N85.02 Endometrial intraepithelial neoplasia [EIN]
CPT/HCPCS: 76856

== ENCOUNTER → 2022-01-17 | Outpatient (CLI) | payer MEDICARE, BC ==
--- NOTE | 2022-01-20 18:59 | MM ---
Reason for Exam: Screening (asymptomatic). Last mammogram was performed 1 year(s) and 1 month(s) ago. Patient History: Menarche at age 12. Patient has no children. Estrogen, starting at age 50. Currently using Progesterone, for 4 years. Last menstrual period: 05/10/2021 Risk Values: Zabrina 5 year model risk: 1.1%. NCI Lifetime model risk: 11.0%. Prior Study Comparison: 03/11/2018 Bilateral Screening Mammogram, [facility]. 04/06/2019 Bilateral Screening Mammogram, [facility]. 01/03/2021 Bilateral Screening Mammogram, [facility]. Tissue Density: The breast tissue is heterogeneously dense. This may lower the sensitivity of mammography. Findings: Analyzed By CAD. Chronic nodularity medial posterior right CC view. No significant change from prior exams. Overall Assessment: Benign, BI-RAD 2 Management: Screening Mammogram of both breasts in 1 year. 1. A clinical breast exam by your physician is recommended on an annual basis and results should be correlated with mammographic findings. 2. The patient should continue monthly self breast exams. 3. This exam should not preclude additional follow-up of suspicious palpable abnormalities. Electronically signed and approved by: Ranulfo Heath M.D. Radiologist
== END | disposition home or self-care (01) ==
LOC: RADMAMWWP 10:47
PROVIDERS: ATTEND Family Medicine
DX: Z12.31 Encounter for screening mammogram for malignant neoplasm of breast (principal)
CPT/HCPCS: 77063; 77067

== ENCOUNTER → 2023-01-29 | Outpatient (CLI) | payer MEDICARE, BC ==
--- NOTE | 2023-01-30 08:40 | MM ---
Reason for Exam: Screening (asymptomatic). Last screening mammogram was performed 12 month(s) ago. Patient History: Menarche at age 12. Patient has no children. Estrogen, starting at age 50. Currently using Progesterone, for 4 years. Risk Values: Zabrina 5 year model risk: 1.2%. NCI Lifetime model risk: 10.8%. Prior Study Comparison: 04/06/2019 Bilateral Screening Mammogram, [facility]. 01/03/2021 Bilateral Screening Mammogram, [facility]. 01/17/2022 Bilateral MG 3D screening mammo w/cad, [facility]. Tissue Density: There are scattered fibroglandular densities. Findings: Analyzed By CAD. There is no suspicious group of microcalcifications or new suspicious mass in either breast. Overall Assessment: Benign, BI-RAD 2 Management: Screening Mammogram of both breasts in 1 year. . Patient should continue monthly self-breast exams. A clinical breast exam by your physician is recommended on an annual basis. This exam should not preclude additional follow-up of suspicious palpable abnormalities. Note on Zabrina scores and lifetime risk: 1. A Zabrina score greater than 3% is considered moderate risk. If this is the case, consider specialist referral to assess eligibility for a risk reducing agent. 2. If overall lifetime risk for the development of breast cancer is 20% or higher, the patient may qualify for future screening with alternating mammogram and breast MRI. Electronically signed and approved by: Kain Light M.D. Radiologis
== END | disposition home or self-care (01) ==
LOC: RADMAMWWP 13:04
PROVIDERS: ATTEND Family Medicine
DX: Z12.31 Encounter for screening mammogram for malignant neoplasm of breast (principal)
CPT/HCPCS: 77063; 77067

== ENCOUNTER → 2023-01-29 | Outpatient (CLI) | payer MEDICARE, BC ==
--- NOTE | 2023-01-29 19:40 | US ---
EXAMINATION TYPE: US pelvic complete DATE OF EXAM: 01/29/2023 COMPARISON: NONE CLINICAL INDICATION: Female, 52 years old with history of N85.02; Left oophorectomy TECHNIQUE: Transabdominal (TA). Date of LMP: unknown EXAM MEASUREMENTS: Uterus: 8.1 x 3.1 x 4.3 cm Endometrial Stripe: 0.3 cm Right Ovary: 2.7 x 2.5 x 1.3 cm Left Ovary: Surgically absent 1. Uterus: Anteverted and otherwise wnl 2. Endometrium: appears wnl 3. Right Ovary: cystic area = 1.5cm 4. Left Ovary: Surgically absent 5. Bilateral Adnexa: appears wnl 6. Posterior cul-de-sac: wnl *Anechoic area superior to uterus = 1.4cm IMPRESSION: 1. A couple cystic areas at the fundus of the uterus measuring up to 1.4 cm. The exact etiology is un clear. Given history of prior endometrial ablation, one possibility is cornual hematometra. Correlate for any corresponding symptoms. Either surveillance follow-up versus further evaluation with female pelvic MRI to better characterize this finding. 2. Status post left oophorectomy. 3. A 1.5 cm cyst of the right ovary.
== END | disposition home or self-care (01) ==
LOC: RADUSWWP 13:06
PROVIDERS: ATTEND Obstetrics & Gynecology
DX: N83.201 Unspecified ovarian cyst, right side (principal); N85.02 Endometrial intraepithelial neoplasia [EIN]; N85.8 Other specified noninflammatory disorders of uterus; Z90.721 Acquired absence of ovaries, unilateral
CPT/HCPCS: 76856

== ENCOUNTER → 2023-11-25 | Outpatient (CLI) | payer MEDICARE, BC ==
--- NOTE | 2023-11-25 16:26 | XR ---
EXAMINATION TYPE: XR wrist complete LT DATE OF EXAM: 11/25/2023 2:44 PM CLINICAL INDICATION:Female, 53 years old with history of M25.532; [facility] COMPARISON: None TECHNIQUE: XR wrist complete LT; examined in the Frontal, navicular, lateral, and oblique. FINDINGS: No acute osseous pathology, joint dislocation, or joint effusion. No evidence of any soft tissue swelling is seen. IMPRESSION: No acute osseous pathology.
== END | disposition home or self-care (01) ==
LOC: RADXRMAIN 14:26
PROVIDERS: ATTEND Family Medicine
DX: M25.532 Pain in left wrist (principal)

== ENCOUNTER → 2024-03-04 | Outpatient (CLI) | payer MEDICARE, BC ==
--- NOTE | 2024-03-08 10:14 | MM ---
Reason for Exam: Screening (asymptomatic). Last mammogram was performed 1 year(s) and 1 month(s) ago. Patient History: Menarche at age 12. Patient has no children. Estrogen, starting at age 50. Currently using Progesterone, for 4 years. Risk Values: Zabrina 5 year model risk: 1.2%. NCI Lifetime model risk: 10.6%. Prior Study Comparison: 01/03/2021 Bilateral Screening Mammogram, [facility]. 01/17/2022 Bilateral MG 3D screening mammo w/cad, [facility]. 01/29/2023 Bilateral MG 3D screening mammo w/cad, [facility]. Tissue Density: The breasts are heterogeneously dense, which may obscure small masses. Findings: Analyzed By CAD. Right breast: Asymmetry posterior depth 9.4 centers the nipple posterior nipple line on MLO view. No obvious correlate on the CC view. Left breast: There is no suspicious group of microcalcifications or new suspicious mass. Overall Assessment: Incomplete: need additional imaging evaluation, BI-RAD 0 Management: Diagnostic Mammogram of the right breast. [facility] will attempt to contact patient to return for supplemental views and ultrasound if indicated. Patient should continue monthly self-breast exams. A clinical breast exam by your physician is recommended on an annual basis. This exam should not preclude additional follow-up of suspicious palpable abnormalities. Note on Zabrina scores and lifetime risk: 1. A Zabrina score greater than 3% is considered moderate risk. If this is the case, consider specialist referral to assess eligibility for a risk reducing agent. 2. If overall lifetime risk for the development of breast cancer is 20% or higher, the patient may qualify for future screening with alternating mammogram and breast MRI. Electronically signed and approved by: Amaury Flor DO
== END | disposition home or self-care (01) ==
LOC: RADMAMWWP 11:27
PROVIDERS: ATTEND Obstetrics & Gynecology
DX: Z12.31 Encounter for screening mammogram for malignant neoplasm of breast (principal); R92.333 Mammographic heterogeneous density, bilateral breasts
CPT/HCPCS: 77063; 77067

== ENCOUNTER → 2024-04-14 | Outpatient (CLI) | payer MEDICARE, BC ==
--- NOTE | 2024-04-14 14:25 | MM ---
Reason for Exam: Additional evaluation requested from abnormal screening. Last screening mammogram was performed 2 month(s) ago. Patient History: Menarche at age 12. Patient has no children. Estrogen, starting at age 50. Currently using Progesterone, for 4 years. Risk Values: Zabrina 5 year model risk: 1.2%. NCI Lifetime model risk: 10.6%. Tissue Density: Right: There are scattered areas of fibroglandular density. Findings: Analyzed By CAD. The questioned posterior central asymmetric density on the MLO view persists but has a circumscribed and isodense appearance on additional views measuring 5 mm favoring a benign etiology. Again, not identified on the cc view. Short interval follow-up recommended to reassess. The upper inner quadrant focal asymmetry remains unchanged. Overall Assessment: Probably benign, BI-RAD 3 Management: Diagnostic Mammogram of the right breast in 6 months. Results were given to the patient verbally at the time of exam. Patient should continue monthly self-breast exams. A clinical breast exam by your physician is recommended on an annual basis. This exam should not preclude additional follow-up of suspicious palpable abnormalities. Note on Zabrina scores and lifetime risk: 1. A Zabrina score greater than 3% is considered moderate risk. If this is the case, consider specialist referral to assess eligibility for a risk reducing agent. 2. If overall lifetime risk for the development of breast cancer is 20% or higher, the patient may qualify for future screening with alternating mammogram and breast MRI. Electronically signed and approved by: Ranulfo Heath M.D. Radiologist
== END | disposition home or self-care (01) ==
LOC: RADMAMWWP 13:22
PROVIDERS: ATTEND Family Medicine
DX: R92.8 Other abnormal and inconclusive findings on diagnostic imaging of breast
CPT/HCPCS: 77061; 77065

== ENCOUNTER → 2024-10-13 | Outpatient (CLI) | payer MEDICARE, BC ==
--- NOTE | 2024-10-13 13:49 | MM ---
Reason for Exam: Follow-up at short interval from prior study. Last screening mammogram was performed 8 month(s) ago. Patient History: Menarche at age 12. Patient has no children. Estrogen, starting at age 50. Currently using Progesterone, for 4 years. Risk Values: Zabrina 5 year model risk: 1.3%. NCI Lifetime model risk: 10.5%. Prior Study Comparison: 01/29/2023 Bilateral MG 3D screening mammo w/cad, [facility]. 03/04/2024 Bilateral MG 3D screening mammo w/cad, [facility]. 04/14/2024 Right MG 3D work up w/cad RT, [facility]. Tissue Density: Right: The breasts are heterogeneously dense, which may obscure small masses. Findings: Analyzed By CAD. Chronic nodularity medial right breast middle depth. Asymmetric density posterior central right MLO view remains unchanged for 8 months. Additional short interval follow-up can be performed. Otherwise, no significant change. Overall Assessment: Probably benign, BI-RAD 3 Management: Diagnostic Mammogram of both breasts in 4 months. Total one-year follow-up right breast and annual exam of the left breast. Results were given to the patient verbally at the time of exam. Patient should continue monthly self-breast exams. A clinical breast exam by your physician is recommended on an annual basis. This exam should not preclude additional follow-up of suspicious palpable abnormalities. Note on Zabrina scores and lifetime risk: 1. A Zabrina score greater than 3% is considered moderate risk. If this is the case, consider specialist referral to assess eligibility for a risk reducing agent. 2. If overall lifetime risk for the development of breast cancer is 20% or higher, the patient may qualify for future screening with alternating mammogram and breast MRI. [facility], , 10/13/2024 1:46 PM. Electronically signed and approved by: Ranulfo Heath M.D. Radiologist
== END | disposition home or self-care (01) ==
LOC: RADMAMWWP 12:55
PROVIDERS: ATTEND Family Medicine
DX: R92.8 Other abnormal and inconclusive findings on diagnostic imaging of breast (principal); R92.333 Mammographic heterogeneous density, bilateral breasts
CPT/HCPCS: 77065; G0279; 77061